=== PATIENT | female | born 1955 | race Caucasian/White ===

== ENCOUNTER → 2023-06-06 12:48 | Outpatient (REF) | payer MEDICARE, OTHER, SELFPAY | LOC: DHCBC MAIN 12:48 | PROVIDERS: ATTENDING PHYSICIAN Internal Medicine Cardiovascular Disease; FAMILY PHYSICIAN Physician Assistant | DX: E78.00 Pure hypercholesterolemia, unspecified (principal); R00.2 Palpitations | CPT/HCPCS: 93306 ==

== ENCOUNTER 2023-08-25 11:13 | Emergency (ER) | payer MEDICARE, OTHER, SELFPAY ==
[2023-08-25 11:14] VITALS: BP 140/80
[2023-08-25 11:44] VITALS: BMI 27.8
--- NOTE | 2023-08-25 13:05 | ED.GENMED ---
History of Present Illness
General
Chief Complaint: Head Injury
Source: patient
Exam Limitations: none
Time Seen by Provider: 08/25/23 11:22
Nursing documentation reviewed up to this point in time: agreed with
Travel History
Have you had any contact with someone who has COVID-19?: No
Do you have any symptoms of coronavirus? Fever > 100 degrees, chills, cough, shortness of breath, sore throat, loss of taste or smell, muscle aches, or headache?: No
History of Present Illness
History of Present Illness:
67-year-old female presenting to the emergency department today after being hit on the back of her head by a horse prior to arrival she got thrown to the ground but denies any additional injuries. Does have some mild neck stiffness and pain to the
right back of her head also noticed slight blurred vision of the right eye. Patient not on blood thinners. No loss of consciousness no numbness weakness or additional concerns.
Past History
Past History
ED Past Medical History: Cancer (Skin cancer), GERD and Hypercholesterolemia
ED Past Surgical History: Gynecological (Hysterectomy), Orthopedic (Bilateral carpal tunnel, Left rotator cuff repair. Right shoulder replacement), Tonsilectomy and Other (Cataracts, )
Social History
Tobacco: Non-smoker
Alcohol: Occasional
Personal:
Living: alone
Family History
Family History: Diabetes, CAD and Cancer; Negative Hypertension, Early CAD or Asthma
Review of Systems
Review of Systems
Allergies reviewed?: Yes
All Other Systems: ROS reviewed and negative except as documented in HPI and ROS
Phy Exam
Physical Exam
Physical Exam:
GENERAL: Alert , in no apparent distress
EYE: pupils equal and reactive normal funduscopic exam normal extraocular movements normal pupil reaction
NECK: Supple, no significant adenopathy.
ENT: o/p clr, mmm.
CARDIAC: Regular rate and rhythm .
LUNGS: Clear breath sounds bilaterally, no acute respiratory distress, no wheezes/rales/rhonchi
ABDOMEN: Soft, without focal tenderness, no r/g, no cvat
NEUROLOGICAL: Alert and oriented, no focal neuro deficits
SKIN: Warm and dry, skin intact.
MUSCULOSKELETAL: No edema, well perfused.
PSYCH: Normal and appropriate interaction.
Course
Orders/Labs/Results
Orders:
Orders
08/25/23 11:43
EKG [Electrocardiogram (*1)] Urgent
Reason for Study: Chest Pain
CT Cervical Spine W/o Iv Contr Urgent
Comment:
Reason For Exam: neck pain horse injury
CT Head W/o Iv Contrast Urgent
Comment:
Reason For Exam: hit head horse
EKG- Treatment ONCE
08/25/23 13:06
Visual Acuity- Treatment ONCE
08/25/23 13:10
Lyme Progressive Urgent
Vital Signs
Initial and Last Documented VS:
Initial Vital Signs
Temp Pulse Resp BP Pulse Ox
97.7 F 66 18 140/80 97
08/25/23 11:14 08/25/23 11:14 08/25/23 11:14 08/25/23 11:14 08/25/23 11:14
Last Documented Vital Signs
Temp Pulse Resp BP Pulse Ox
97.7 F 66 18 140/80 97
08/25/23 11:14 08/25/23 11:14 08/25/23 11:14 08/25/23 11:14 08/25/23 11:14
MDM/Problems Addressed
MDM/Problems Addressed:
67-year-old female presenting to the emergency department after being hit in the right back of the head prior to arrival no loss of consciousness has noticed blurred vision of the right eye since. On physical examination no specific findings normal
eye exam. CT scan obtained of the head and neck without emergent findings EKG normal. Normal neurologic evaluation otherwise. Head CT without emergent findings does show some chronic changes that were discussed with the patient Lyme titer was
drawn prior to discharge advised for close outpatient follow-up for this. Otherwise she was advised for close ophthalmology follow-up considering the vision of her right eye slightly blurred compared to the left. Otherwise normal eye exam here.
Stable for discharge return precautions given.
*Critical Care Note
Total Time (30-74mins, 75-104mins- exclusive of procedures): Not Applicable
ED Attending Note
-
Portions of this chart may have been created with voice recognition software.� Occasional wrong word or��sound alike� substitutions may have occurred due to the inherent limitations of voice recognition software.
Discharge Plan
Departure
Patient Disposition: Home (Routine Discharge)
Date of Disposition: 08/25/23
Time of Disposition: 13:16
Patient with high blood pressure during this ER visit?: No
Condition: Good
Covid-19: Not Applicable
Discharge Problem:
Head injury, Blurred vision, right eye
Instructions: Concussion, Adult (DC)
Prescriptions:
No Action
vitamin B complex [B-Complex] 1 TAB tablet
1 tab PO DAILY
turmeric 400 MG capsule
500 mg PO DAILY
Hold Instructions: Resume on 07/15/22.
glucosamine [id number] 1 EACH tablet
1 ea PO DAILY
Hold Instructions: Resume on 07/15/22.
multivitamin Tablet
1 tab PO DAILY
zinc acetate 25 mg (zinc) Capsule
25 mg PO DAILY
calcium carbonate-vitamin D3 600 mg-5 mcg (200 unit) Tablet
1 tab PO DAILY
flaxseed Powder
1 ea PO DAILY
Hold Instructions: Resume on 07/15/22.
Fish Oil-Vit D3 29 mg-6 mg-133 mg-100 unit Tablet,Chewable
1 tab PO DAILY
Hold Instructions: Resume on 07/15/22.
collagen
1 tsp PO DAILY
tramadol 50 mg tablet
50 mg PO Q6H PRN (Reason: moderate-severe pain) Qty: 30 0RF
Rx Instructions:
1 tab for moderate pain, 2 if severe.
Dx total joint. Ongoing therapy.
meloxicam 15 mg tablet
15 mg PO DAILY Qty: 30 0RF
Rx Instructions:
Take with food.
DO NOT take within 2 hours of Aspirin post-surgery.
dexamethasone 4 mg tablet
4 mg PO BID Qty: 7 0RF
Rx Instructions:
Start night of discharge and take twice daily until finished.
ondansetron HCl 4 mg tablet
4 mg PO Q6H PRN (Reason: nausea and vomiting) Qty: 20 0RF
Rx Instructions:
Take 1/2 hour prior to Tramadol if experiencing recurrent nausea.
mupirocin 2 % ointment
1 applic intranasal BID Qty: 1 0RF
cholecalciferol (vitamin D3) [Vitamin D3] 125 mcg (5,000 unit) Tablet
125 mcg PO DAILY
acetaminophen [Acetaminophen Extra Strength] 500 mg tablet
1,000 mg PO Q6H Qty: 60 0RF
Rx Instructions:
DO NOT exceed >4000 mg daily.
docusate sodium [Colace] 100 mg capsule
100 mg PO BID Qty: 30 0RF
sennosides [senna] 8.6 mg tablet
17.2 mg PO BID Qty: 30 0RF
aspirin 325 mg tablet
325 mg PO DAILY Qty: 30 0RF
Rx Instructions:
Take daily x4 weeks for blood clot prevention; then resume Aspirin 81 mg daily.
famotidine [Pepcid] 20 mg Tablet
20 mg PO HS Qty: 30 0RF
Rx Instructions:
Take nightly while on Meloxicam
Referrals:
Monica Cunningham CRNP [Family Provider] -
Activity Restrictions/Additional Instructions:
You came to the emergency department today after an injury to your head. Here you had a reassuring assessment and a Lyme titer was sent. Please follow closely with the primary care doctor and please follow-up with the eye doctor in the next few
days for further assessment if there is any ongoing blurred vision. Return to the emergency department for any worsening, new or concerning symptom
Interventions
Interventions:
*Risk Screen - Suicide Last Done: 08/25/23 11:45
*General Assessment Last Done: 08/25/23 11:45
*Neglect/Abuse Screening Last Done: 08/25/23 11:45
ED- Fall Risk Assessment Last Done: 08/25/23 11:46
*ED COVID-19 Vaccine History Last Done: 08/25/23 11:45
ED- Neurological Assessment Last Done: 08/25/23 11:49
ED-Skin Assessment Last Done: 08/25/23 11:48
Discharge Date and Time
Print Language: SWEDISH
[2023-08-25 13:24] VITALS: BP 101/69
[2023-08-28 16:55] LABS: Lyme Antibody Screen, EIA Negative (Negative)
== END 2023-08-25 13:24 | disposition home or self-care (01) ==
LOC: EMR 11:13
PROVIDERS: Physician Assistant; EMERGENCY PHYSICIAN Emergency Medicine; FAMILY PHYSICIAN Nurse Practitioner Family
DX: S09.90XA Unspecified injury of head, initial encounter (principal); H53.8 Other visual disturbances; M43.6 Torticollis; R53.1 Weakness; W55.12XA Struck by horse, initial encounter; W18.39XA Other fall on same level, initial encounter; E78.00 Pure hypercholesterolemia, unspecified; K21.9 Gastro-esophageal reflux disease without esophagitis; M19.90 Unspecified osteoarthritis, unspecified site; Z85.828 Personal history of other malignant neoplasm of skin; Z96.611 Presence of right artificial shoulder joint
CPT/HCPCS: 99284; 70450; 72125; 86618; 93005

== ENCOUNTER → 2024-03-01 14:53 | Outpatient (REF) | payer MEDICARE, OTHER, SELFPAY | LOC: RAD 14:53 | PROVIDERS: ATTENDING PHYSICIAN Specialist; FAMILY PHYSICIAN Nurse Practitioner Family | DX: R51.9 Headache, unspecified (principal) | CPT/HCPCS: 70450 ==

== ENCOUNTER → 2024-06-13 15:00 | Outpatient (REF) | payer MEDICARE, OTHER, SELFPAY | LOC: RCS 15:00 | PROVIDERS: ATTENDING PHYSICIAN Nurse Practitioner Family | DX: I49.3 Ventricular premature depolarization (principal) | CPT/HCPCS: 93005 ==

== ENCOUNTER → 2024-07-22 12:08 | Outpatient (REF) | payer MEDICARE, OTHER, SELFPAY | LOC: MRI 3T 12:08 | PROVIDERS: ATTENDING PHYSICIAN Physical Medicine & Rehabilitation | DX: M54.16 Radiculopathy, lumbar region (principal) | CPT/HCPCS: 72148 ==

== ENCOUNTER → 2024-08-28 12:54 | Outpatient (REF) | payer MEDICARE, OTHER, SELFPAY | LOC: WDC 12:54 | PROVIDERS: ATTENDING PHYSICIAN Obstetrics & Gynecology Gynecology; FAMILY PHYSICIAN Nurse Practitioner Family | DX: Z12.39 Encounter for other screening for malignant neoplasm of breast (principal); Z12.31 Encounter for screening mammogram for malignant neoplasm of breast | CPT/HCPCS: 77063; 77067 ==

== ENCOUNTER 2024-09-24 02:26 | Emergency (ER) | payer MEDICARE, OTHER, SELFPAY ==
[2024-09-24 02:27] VITALS: BP 164/86
[2024-09-24 02:39] VITALS: BP 132/77
--- NOTE | 2024-09-24 02:39 | ED.GENMED ---
History of Present Illness
General
Chief Complaint: Head Injury
Source: patient
Exam Limitations: none
Time Seen by Provider: 09/24/24 02:38
Nursing documentation reviewed up to this point in time: agreed with
History of Present Illness
History of Present Illness:
68-year-old female with past history of hyperlipidemia, GERD, who presents emergency department today with concerns of posterior scalp pain following a fall. Patient reports that on Monday evening 2 days ago she was getting onto her pony when she
lost her balance and fell off, landing on her right side. Patient endured a small laceration to her left scalp. At the time of the injury, she reports that she did call EMS however when they arrived to her house, she was feeling better and refused
ER transfer. Patient reports that over the past 2 days, she feels like she has noticed the pain in the back of her head more and she also notes that she like her blood pressure has been elevated recently. She reports that at home yesterday she is
doing at home blood pressure checked and noticed it was in the 170s. Patient reports that she has no history of high blood pressure and she just had a checkup with her primary care provider last week and her blood pressure in office it was in the
120s and did not decide to start blood pressure medication. Currently, other than the pain in her scalp, patient feels well, she does have some mild neck pain but no chest pain, no shortness of breath, no pain in her extremities
Past History
Past History
ED Past Medical History: Cancer (Skin cancer), GERD and Hypercholesterolemia
ED Past Surgical History: Gynecological (Hysterectomy), Orthopedic (Bilateral carpal tunnel, Left rotator cuff repair. Right shoulder replacement), Tonsilectomy and Other (Cataracts, )
Social History
Tobacco: Non-smoker
Alcohol: Occasional
Personal:
Living: alone
Family History
Family History: Diabetes, CAD and Cancer; Negative Hypertension, Early CAD or Asthma
Review of Systems
Review of Systems
All Other Systems: ROS reviewed and negative except as documented in HPI and ROS
Phy Exam
Physical Exam
Physical Exam:
General: Patient is well appearing and in no acute distress; non-toxic
Skin: Warm and dry, no rashes or lesions
Head: Small well-approximated abrasion noted to the posterior scalp
Eyes: Sclera non-icteric. EOMs intact.
Cardiac: Regular rate and rhythm, no murmurs, no tenderness palpation of external chest wall
Peripheral Vascular: No lower extremity swelling or edema, 2+ results pedis pulses bilaterally
Pulm: Normal respiratory effort, no wheezes, rales, rhonchi
Abdomen: No abdominal tenderness to palpation
Musculoskeletal: Mild paraspinal tenderness noted in cervical spine. No midline thoracic or lumbar tenderness. No pain with internal or external rotation of hips bilaterally, no pain with extension and flexion of the knees bilaterally.
Neuro: CN II-XII intact, no focal neurologic deficits.
Psychiatric: Appropriate mood and affect.
Course
Orders/Labs/Results
Orders:
Orders
09/24/24 02:48
CT Cervical Spine W/o Iv Contr Urgent
Comment:
Reason For Exam: midline neck pain following fall
09/24/24 02:49
CT Head W/o Iv Contrast Urgent
Comment:
Reason For Exam: posterior headache following fall
09/24/24 03:46
Tetanus/Diphth/Acelpertussis [Adacel] 0.5 ml IM .ONCE ONE
Vital Signs
Initial and Last Documented VS:
Initial Vital Signs
Temp Pulse Resp BP Pulse Ox
97.8 F 72 20 164/86 98
09/24/24 02:27 09/24/24 02:27 09/24/24 02:27 09/24/24 02:09/24/24 02:27
Last Documented Vital Signs
Temp Pulse Resp BP Pulse Ox
97.8 F 72 20 132/77 98
09/24/24 02:27 09/24/24 02:27 09/24/24 02:27 09/24/24 02:39 09/24/24 02:27
MDM/Problems Addressed
Differential Diagnosis Includes:
ddx include contusion, concussion, laceration, abrasion, subdural hematoma, epidural hematoma
MDM/Problems Addressed:
68-year-old female with past history of hyperlipidemia, GERD, who presents emergency department today with concerns of posterior scalp pain following a fall. Patient reports that on Monday evening 2 days ago she was getting onto her pony when she
lost her balance and fell off, landing on her right side. Patient endured a small laceration to her left scalp. She has some pain in her neck as well, denies any pain in her extremities. Has been ambulating without any difficulties. Her CT scan
of the head shows no acute intracranial abnormalities, no signs of bleeding. Her CT scan of the cervical spine shows no fracture. Patient's tetanus was updated. Did offer her Tylenol and lidocaine patches for pain, patient declined this and
states that she feels comfortable at this time. Patient stable for discharge. Return precautions discussed
Chronic conditions affecting care:
GERD, hyperlipidemia
*Pulse Oximetry
Patient hypoxic: no
*Critical Care Note
Total Time (30-74mins, 75-104mins- exclusive of procedures): Not Applicable
Data Reviewed
Review of Other/Old Records Reveals: Records (Reviewed ER physician documentation from 08/25/2023 patient seen for injury from her horse, was discharged with unremarkable workup)
Source: patient and records
ED Attending Note
-
Portions of this chart may have been created with voice recognition software.� Occasional wrong word or��sound alike� substitutions may have occurred due to the inherent limitations of voice recognition software.
Discharge Plan
Departure
Patient Disposition: Home (Routine Discharge)
Date of Disposition: 09/24/24
Time of Disposition: 03:47
Patient with high blood pressure during this ER visit?: Yes
Condition: Good
Discharge Problem:
Fall from horse
Instructions: Preventing falls in adults, BLOOD PRESSURE
Prescriptions:
No Action
vitamin B complex [B-Complex] 1 TAB tablet
1 tab PO DAILY
zinc acetate 25 mg (zinc) Capsule
25 mg PO DAILY
calcium carbonate-vitamin D3 600 mg-5 mcg (200 unit) Tablet
1 tab PO DAILY
Fish Oil-Vit D3 29 mg-6 mg-133 mg-100 unit Tablet,Chewable
1 tab PO DAILY
collagen
1 tsp PO DAILY
cholecalciferol (vitamin D3) [Vitamin D3] 125 mcg (5,000 unit) Tablet
125 mcg PO DAILY
acetaminophen [Acetaminophen Extra Strength] 500 mg tablet
1,000 mg PO Q6H Qty: 60 0RF
Rx Instructions:
DO NOT exceed >4000 mg daily.
aspirin 325 mg tablet
325 mg PO DAILY Qty: 30 0RF
Rx Instructions:
Take daily x4 weeks for blood clot prevention; then resume Aspirin 81 mg daily.
famotidine [Pepcid] 20 mg tablet
20 mg PO PRN PRN (Reason: indigestion)
Rx Instructions:
Take nightly while on Meloxicam
Referrals:
UNKNOWN - PT DOES,NOT KNOW [Family Provider] -
Activity Restrictions/Additional Instructions:
Your CT scan breast shows no intracranial abnormality. Your CT of the cervical spine shows no fracture. Your blood pressure came down without intervention. Please follow-up with your primary care provider. Please continue to monitor your
symptoms. Please return emergency department for any new or worsening symptoms, chest pain, shortness of breath, headaches, weakness in one-sided versus the other, difficulty ambulating, or any other signs or symptoms worrisome to you
Interventions
Interventions:
*Risk Screen - Suicide Last Done: 09/24/24 02:27
*General Assessment Last Done: 09/24/24 02:40
*Neglect/Abuse Screening Last Done: 09/24/24 02:27
*ED- Fall Risk Assessment Last Done: 09/24/24 02:40
*ED COVID-19 Vaccine History Last Done: 09/24/24 02:40
ED- Cardiac Assessment Last Done: 09/24/24 03:00
ED- Neurological Assessment Last Done: 09/24/24 03:00
ED- Pulmonary Assessment Last Done: 09/24/24 03:00
ED-Skin Assessment Last Done: 09/24/24 03:00
Discharge Date and Time
Print Language: ROMANIAN
[2024-09-24 02:41] VITALS: BMI 28.0
[2024-09-24 03:00] VITALS: BP 128/64
[2024-09-24] MEDS: ADACEL 0.5 ML IM (03:52)
== END 2024-09-24 04:02 | disposition home or self-care (01) ==
LOC: EMR 02:26
PROVIDERS: EMERGENCY PHYSICIAN Emergency Medicine; FAMILY PHYSICIAN Nurse Practitioner Family
DX: S01.01XA Laceration without foreign body of scalp, initial encounter (principal); V80.010A Animal-rider injured by fall from or being thrown from horse in noncollision accident, initial encounter; Y93.52 Activity, horseback riding; Z23 Encounter for immunization; E78.00 Pure hypercholesterolemia, unspecified; K21.9 Gastro-esophageal reflux disease without esophagitis; Z82.49 Family history of ischemic heart disease and other diseases of the circulatory system; Z83.3 Family history of diabetes mellitus; Z85.828 Personal history of other malignant neoplasm of skin; Z90.710 Acquired absence of both cervix and uterus; Z96.611 Presence of right artificial shoulder joint
CPT/HCPCS: 99284; 90471; 70450; 72125; 90715

== ENCOUNTER 2025-02-13 06:27 | Day surgery (SDC) | payer MEDICARE, OTHER, SELFPAY | END 2025-02-13 14:22 | disposition home or self-care (01) | LOC: GI 06:27 | PROVIDERS: ATTENDING PHYSICIAN Internal Medicine Gastroenterology | DX: R12 Heartburn (principal); K44.9 Diaphragmatic hernia without obstruction or gangrene; Z13.810 Encounter for screening for upper gastrointestinal disorder; K31.89 Other diseases of stomach and duodenum; K29.50 Unspecified chronic gastritis without bleeding; K21.9 Gastro-esophageal reflux disease without esophagitis | CPT/HCPCS: 43239; 88305; 88342 ==